=== PATIENT | female | born 1995 | race Caucasian/White ===

== ENCOUNTER 2021-01-25 20:17 | Emergency (ER) | payer OTHER ==
[~2021-01-25] VITALS: Ht 162.6 cm; Wt 61.7 kg
[~2021-01-25 20:17] MED LIST: ACETAMINOPHEN-1 EAC1 PO; ACYCLOVIR 400400 MG PO; CIPRO500 MG PO; IBUPROFEN 600600 M1 PO; LIDOCAINE 22 %/30 GM TOP
[2021-01-25 21:34] VITALS: BP 122/56
== END 2021-01-25 21:35 | disposition left against medical advice (07) ==
LOC: M.ERS 20:17
DX: M79.672 Pain in left foot (principal); F17.210 Nicotine dependence, cigarettes, uncomplicated